=== PATIENT | male | born 1925 | race Caucasian/White ===

== ENCOUNTER 2017-05-15 18:06 | Inpatient (IN) | payer OTHER, BC ==
[~2017-05-15] VITALS: Ht 172.7 cm; Wt 68.6 kg
[2017-05-15 18:46] LABS: HEMATOCRIT 34.6 % (38.0-50.0); MCH 30.3 PG (29.0-34.0); MCHC 33.8 G/DL (30.0-36.0); MCV 89.6 FL (86-99); MEAN PLAT.VOLUME 9.4 uM^3 (9.0-12.4); PLATELET COUNT 213 K/uL (156-360); RBC DIS.WIDTH-CV 12.7 % (11.8-14.6); RBC DIS.WIDTH-SD 41.8 % (39-53); RED BLOOD COUNT 3.86 M/uL (4.00-5.50); WHITE BLOOD COUNT 19.6 K/uL (4.1-10.2)
[2017-05-15 19:00] LABS: CHLORIDE 99 mEq/L (99-109); POTASSIUM 3.9 mEq/L (3.7-5.4); SODIUM 133 mEq/L (136-147)
[2017-05-15 19:02] LABS: GLUCOSE 262 mg/dL (70-99)
[2017-05-15 19:03] LABS: ANION GAP 11 MEQ/L (2-14)
[2017-05-15 19:04] LABS: TOTAL BILIRUBIN 0.9 mg/dL (0.0-1.0)
[2017-05-15 19:06] LABS: ALKALINE PHOSPHATASE 59 IU/L (3-129); GFR ESTIMATE (CALCULATED) > 59 mL/min/
[2017-05-15 19:07] LABS: TROP-I INTERPRETATION NEGATIVE; TROPONIN-I < 0.01 ng/mL (0.0-0.30); UREA NITROGEN (BUN) 29 mg/dL (9-23)
[2017-05-15 19:45] LABS: LIPASE 12 U/L (1.0-51.0)
[2017-05-15 21:14] LABS: ADD MIUA? NO; BILIRUBIN NEGATIVE; BLOOD NEGATIVE; COLOR YELLOW ((YELLOW)); GLUCOSE (STRIP) >=500; KETONES NEGATIVE; LEUKOCYTES NEGATIVE; NITRITE NEGATIVE; PROTEIN (STRIP) NEGATIVE; SPECIFIC GRAVITY 1.013 (1.000-1.030); UCUL ADDED? NO; UROBILINOGEN 0.2 MG/DL (0.2-1.0)
[2017-05-15] MEDS ORDERED: TAMSULOSIN HCL0.4 MG PO (21:51)
[2017-05-15] MEDS ORDERED: PRINIVIL5 MG PO (21:51)
[2017-05-15] MEDS ORDERED: PRAVACHOL10 MG PO (21:52)
[2017-05-15] MEDS ORDERED: GLYBURIDE-METF1 EAC3 PO (21:52)
[2017-05-15] MEDS ORDERED: COLACE100 MG PO (21:52)
[2017-05-15] MEDS ORDERED: VITAMIN B12 100MCG PO (21:53)
[2017-05-15] MEDS ORDERED: ALLERGY RELIEF10 M1 PO (21:53)
[2017-05-15] MEDS ORDERED: OCUVITE LUTEIN1 EAC2 PO (21:53)
[2017-05-15] MEDS ORDERED: LO-DOSE ASPIRIN81 M2 PO (21:54)
[2017-05-15] MEDS ORDERED: VITAMIN D31000 UNI2 PO (21:54)
[2017-05-15] MEDS ORDERED: OMEGA-31000 M1 PO (21:54)
[2017-05-15] MEDS ORDERED: CALCIUM 500 +1 EACH PO (21:54)
[2017-05-16] VITALS (7 sets, daily range): BP systolic 96–127; BP diastolic 51–60
[2017-05-16 06:49] LABS: HEMATOCRIT 30.1 % (38.0-50.0); MCH 30.4 PG (29.0-34.0); MCHC 33.2 G/DL (30.0-36.0); MCV 91.5 FL (86-99); PLATELET COUNT 192 K/uL (156-360); RBC DIS.WIDTH-CV 12.7 % (11.8-14.6); RBC DIS.WIDTH-SD 42.1 % (39-53); RED BLOOD COUNT 3.29 M/uL (4.00-5.50); WHITE BLOOD COUNT 15.4 K/uL (4.1-10.2)
[2017-05-16 07:13] LABS: ANION GAP 6 MEQ/L (2-14); CHLORIDE 105 MEQ/L (99-109); GFR ESTIMATE (CALCULATED) > 59 mL/min/; POTASSIUM 3.5 MEQ/L (3.7-5.4); SAMPLE HEMOLYSIS CHECK 0; SAMPLE ICTERIC CHECK 0; SAMPLE LIPEMIA CHECK 0; SODIUM 135 MEQ/L (136-147); UREA NITROGEN (BUN) 25 mg/dL (9-23)
[2017-05-16 07:15] LABS: GLUCOSE 111 mg/dL (70-99)
[2017-05-16 07:28] LABS: ABS NEUTROPHIL COUNT 13.6; ANISOCYTOSIS 1+; BAND NEUTROPHILS 14.2 % (0-8.0); EOSINOPHIL ABS CT 0; INSTRUMENT ABS NEUTROPHIL CT 12.9 K/uL; MICROCYTOSIS 1+; PLAT.SUFFICIENCY ADEQUATE; SEG.NEUTROPHILS 74.3 % (46.0-76.0)
[2017-05-16 08:34] LABS: INTERNAL CONTROL VALID? YES
[2017-05-16 11:55] LABS: POINT-OF-CARE METER ID UU14188577
[2017-05-17 04:28] VITALS: BP 135/63
[2017-05-17 08:15] VITALS: BP 117/60
[2017-05-17 08:51] LABS: HEMATOCRIT 35.5 % (38.0-50.0); MCH 30.6 PG (29.0-34.0); MCV 92.9 FL (86-99); PLATELET COUNT 225 K/uL (156-360); RBC DIS.WIDTH-CV 12.9 % (11.8-14.6); RBC DIS.WIDTH-SD 43.9 % (39-53); RED BLOOD COUNT 3.82 M/uL (4.00-5.50); WHITE BLOOD COUNT 9.3 K/uL (4.1-10.2)
[2017-05-17 09:24] LABS: ANION GAP 11 MEQ/L (2-14); CHLORIDE 103 MEQ/L (99-109); GFR ESTIMATE (CALCULATED) > 59 mL/min/; POTASSIUM 4.1 MEQ/L (3.7-5.4); SAMPLE HEMOLYSIS CHECK 0; SAMPLE ICTERIC CHECK 0; SAMPLE LIPEMIA CHECK 0; SODIUM 139 MEQ/L (136-147); UREA NITROGEN (BUN) 18 mg/dL (9-23)
[2017-05-17 09:25] LABS: GLUCOSE 204 mg/dL (70-99)
[2017-05-17 11:52] VITALS: BP 114/55
[2017-05-17 14:26] LABS: TROP-I INTERPRETATION NEGATIVE; TROPONIN-I < 0.01 ng/mL (0.0-0.30)
[2017-05-17 14:27] LABS: MAGNESIUM 1.7 mg/dl (1.3-2.7); POTASSIUM 4.1 MEQ/L (3.7-5.4)
[2017-05-17 16:34] VITALS: BP 106/55
[2017-05-17 16:37] LABS: POINT-OF-CARE METER ID UU14188577
[2017-05-17 19:53] VITALS: BP 126/61
[2017-05-17 23:32] VITALS: BP 135/64
[2017-05-18 03:45] VITALS: BP 103/55
[2017-05-18 07:21] LABS: POINT-OF-CARE METER ID UU14188577
[2017-05-18 08:31] VITALS: BP 130/59
[2017-05-18] MEDS ORDERED: AZITHROMYCIN500 M1 PO (12:01)
[2017-05-18 12:26] VITALS: BP 117/56
[2017-05-18 15:44] VITALS: BP 107/57
== END 2017-05-18 18:38 | disposition home health service (06) | DRG 871 ==
LOC: EME 18:06 → 3EAST 22:37 → EDOF 22:37 → 3EAST 05-16 00:05
PROVIDERS: Hospitalist; Internal Medicine; Physician Assistant
DX: A41.9 Sepsis, unspecified organism (principal); G93.41 Metabolic encephalopathy; I95.9 Hypotension, unspecified; J18.9 Pneumonia, unspecified organism; E11.69 Type 2 diabetes mellitus with other specified complication; E86.0 Dehydration; E86.1 Hypovolemia; E87.1 Hypo-osmolality and hyponatremia; E78.00 Pure hypercholesterolemia, unspecified; E78.5 Hyperlipidemia, unspecified; E87.6 Hypokalemia; I10 Essential (primary) hypertension; N40.0 Benign prostatic hyperplasia without lower urinary tract symptoms; Z87.891 Personal history of nicotine dependence; R35.0 Frequency of micturition; Z79.84 Long term (current) use of oral hypoglycemic drugs
CPT/HCPCS: 70450; 71020; 80048; 80053; 81003; 82310; 82948; 83605; 83690; 83735; 84100; 84132 91; 84484; 85025; 85027; 87040; 87070; 87205; 87449; 93005; 99202; 99281; 99285; J0456; J0696; J1644; J1815; J7030; J7050; J7120